=== PATIENT | female | born 1990 | race Hispanic/Latino ===

== ENCOUNTER 2017-09-23 11:13 | Emergency (ER) | payer BC ==
[2017-09-23 11:27] VITALS: TEMP 98
[2017-09-23 12:19] LABS: BASO # 0.1 K/uL (0.0-0.2); BASO % 0.8 % (0.0-2.0); EOS % 0.1 % (0.0-4.0); LYMPH # 1.5 K/uL (1.0-4.3); LYMPH % 22.3 % (20.0-40.0); MEAN CELL VOLUME 89.3 fl (81.0-99.0); MEAN CORPUSCULAR HEMOGLOBIN 30.5 pg (27.0-31.0); MEAN CORPUSCULAR HGB CONC 34.1 g/dL (33.0-37.0); MEAN PLATELET VOLUME 7.8 fl (7.2-11.7); MONO # 0.4 K/uL (0.0-0.8); MONO % 6.5 % (0.0-10.0); NEUT # 4.6 K/uL (1.8-7.0); NEUT % 70.3 % (50.0-75.0); NRBC % 0.2 % (0.0-0.0); RBC 4.59 Mil/uL (3.80-5.20); RED CELL DISTRIBUTION WIDTH 13.7 % (11.5-14.5); WHITE BLOOD COUNT 6.5 K/uL (4.8-10.8)
--- NOTE | 2017-09-23 12:20 | RAD ---
HISTORY: weakness COMPARISON: No prior. TECHNIQUE: Chest PA and lateral FINDINGS: LUNGS: No active pulmonary disease. PLEURA: No significant pleural effusion identified. No pneumothorax apparent. CARDIOVASCULAR: Normal. OSSEOUS STRUCTURES: No significant abnormalities. VISUALIZED UPPER ABDOMEN: Normal. OTHER FINDINGS: None. IMPRESSION: No active disease.
[2017-09-23] MEDS: Sodium Chloride 0.9% 1,000 ML IV SCH ×2 (12:22→13:05)
[2017-09-23 12:32] LABS: ALB/GLOB RATIO 1.2 (1.0-2.1); ALBUMIN 4.4 g/dL (3.5-5.0); ALT/SGPT 38 U/L (9-52); AST/SGOT 26 U/L (14-36); BLOOD UREA NITROGEN 10 mg/dl (7-17); CALCIUM 9.4 mg/dL (8.4-10.2); GFR AFRICAN-AMERICAN > 60; GFR NON-AFRICAN AMERICAN > 60
[2017-09-23 13:06] LABS: BARBITURATES, UR NEGATIVE (NEGATIVE); BENZODIAZEPINES, UR NEGATIVE (NEGATIVE); OPIATES, UR NEGATIVE (NEGATIVE); PHENCYCLIDINE, UR NEGATIVE (NEGATIVE)
--- NOTE | 2017-09-23 13:28 | ED PDOC ---
HPI: General Adult Time Seen by Provider: 09/23/17 11:22 Chief Complaint (Nursing): Flu-like Symptoms Chief Complaint (Provider): Flu-like Symptoms History Per: Patient History/Exam Limitations: no limitations Onset/Duration Of Symptoms: Days (x 1 week) Have you had recent travel within the past 21 days to any of the following countries: [place], [place], [place] or [place]?: No Current Symptoms Are (Timing): Still Present Additional Complaint(s): 26 y/o female presents complaining of generalized weakness and nausea. States she just came back from [place] 1 week ago and felt well at that time. On Sunday while at work, she developed flu-like symptoms including fever, body aches, malaise, and intermittent diarrhea. Symptoms improved 3-4 days ago but last night she went out and had 3-4 drinks, and this morning began feeling weak with nausea. Otherwise she currently denies any: (-) fever, (-) cough, (-) shortness of breath, (-) chest pain, (-) abdominal pain, (-) diarrhea, (-) urinary symptoms. No recent sick contacts. PMD: None Past Medical History Reviewed: Historical Data, Nursing Documentation, Vital Signs Vital Signs: Last Vital Signs Temp 98.0 F 09/23/17 13:30 Pulse 82 09/23/17 13:30 Resp 16 09/23/17 13:30 BP 120/76 09/23/17 13:30 Pulse Ox 99 09/23/17 14:29 - Medical History PMH: No Chronic Diseases - Surgical History Surgical History: No Surg Hx - Family History Family History: States: Unknown Family Hx - Social History Current smoker - smoking cessation education provided: No Alcohol: Social Drugs: Denies - Immunization History Hx Tetanus Toxoid Vaccination: No Hx Influenza Vaccination: No Hx Pneumococcal Vaccination: No - Home Medications Home Medications: Ambulatory Orders Medication Instructions Recorded Ondansetron ODT [Zofran ODT] 4 mg PO DAILY PRN #20 odt 09/23/17 - Allergies Allergies/Adverse Reactions: Allergies Allergy/AdvReac Type Severity Reaction Status Date / Time No Known Allergies Allergy Verified 09/23/17 11:24 Review of Systems ROS Statement: Except As Marked, All Systems Reviewed And Found Negative Constitutional: Positive for: Weakness (generalized), Malaise, Other (bodyaches) . Negative for: Fever Cardiovascular: Negative for: Chest Pain Respiratory: Negative for: Cough, Shortness of Breath Gastrointestinal: Negative for: Diarrhea (now resolved) Physical Exam - Reviewed Nursing Documentation Reviewed: Yes Vital Signs Reviewed: Yes - Physical Exam Comments: GENERAL APPEARANCE: Patient is awake, alert, oriented x 3, in no acute distress. SKIN: Warm, dry; (-) cyanosis, (-) rash. EYES: (-) conjunctival pallor, (-) scleral icterus, (-) conjunctival hemorrhage. ENMT: Mucous membranes are dry. TMs: (-) erythema. Airway patent: (-) stridor. Pharynx: (-) erythema, (-) exudate. NECK: (-) tenderness, (-) stiffness, (-) meningismus, (-) lymphadenopathy. CHEST AND RESPIRATORY: (-) accessory muscle use. Lungs: (-) rales, (-) rhonchi, (-) wheezes, (-) rub; breath sounds equal bilaterally. HEART AND CARDIOVASCULAR: (-) irregularity; (-) murmur, (-) gallop, (-) rub. ABDOMEN AND GI: Soft; (-) tenderness, (-) guarding; (-) organomegaly; (-) mass ; (-) CVA tenderness. EXTREMITIES: (-) deformity; (-) cellulitis, (-) lymphangitis; (-) subungual hemorrhage; (-) edema. NEURO AND PSYCH: Mental status as above; (-) focal findings. - Laboratory Results Result Diagrams: 09/23/17 12:05 09/23/17 12:05 - ECG O2 Sat by Pulse Oximetry: 99 (RA) Pulse Ox Interpretation: Normal Medical Decision Making Medical Decision Making: Impression : dehydration, r/o pneumonia, consider mono vs flu Time: 11:47 Initial Plan: --Urine drug screen --Alcohol serum --CMP --CBC --Urine preg --Urine dipstick --Chest x-ray --Urinalysis --Urine culture --IV fluids --Zofran 4 mg PO --Pending flu swab and mononucleosis serology CXR: No acute disease, as read by SHANE leroy (-) UA : (+) ketones, no evidence of UTI Labs reviewed: Negative flu and mono. Blood work otherwise normal. Etoh & UDS (- ). On re-evaluation, patient reports improvement of symptoms, denies any CP, SOB, abdominal pain, nausea. States that she feels much better and wants to go home. On exam, patient remains AAOx3, in no acute distress. Neck is supple, repeat neuro exam shows no focal findings. Tolerating po fluids. VS T98 P82 BP120/76 R16 [id number]%RA Diagnostic results d/w the patient in great detail. Diagnosis of dehydration, s/ p viral (flu) illness d/w the patient. Based on history, exam and diagnostic results plan will be for outpatient follow up with primary doctor or referral provided. Patient will be discharged home with prescription for Zofran. Patient is medically stable for discharge home. Advised to follow up with primary care physician or referral in 1-2 days without fail. Advised to take medication as prescribed. Return to the emergency room at any time for any new or worsening symptoms. Patient states she fully agrees with and understands discharge instructions. States that she agrees with the plan and disposition. Verbalized and repeated discharge instructions and plan. I have given the patient opportunity to ask any additional questions. Scribe Attestation: Documented by Awa Stoner, acting as a scribe for Kiesha Canales PA-C Provider Scribe Attestation: All medical record entries made by the Scribe were at my direction and personally dictated by me. I have reviewed the chart and agree that the record accurately reflects my personal performance of the history, physical exam, medical decision making, and the department course for this patient. I have also personally directed, reviewed, and agree with the discharge instructions and disposition. Disposition - Clinical Impression Clinical Impression: Dehydration - Patient ED Disposition Is Patient to be Admitted: No Counseled Patient/Family Regarding: Studies Performed, Diagnosis, Need For Followup, Rx Given - Disposition Referrals: Clayton Cerrato MD [Staff Provider] - Disposition: Routine/Home Disposition Time: 13:00 Condition: IMPROVED Additional Instructions: Thank you for letting us take care of you today. You were treated for dehydration. The emergency medical care you received today was directed at your acute symptoms. If you were prescribed any medication, please fill it and take as directed. Bed rest, drink plenty of fluids. It may take several days for your symptoms to resolve. Return to the Emergency Department if your symptoms worsen, do not improve, or if you have any other problems. Please contact one of the physicians/clinics you have been referred to that are listed on the Patient Visit Information form that is included in your discharge packet. Bring any paperwork you were given at discharge with you along with any medications you are taking to your follow up visit. Our treatment cannot replace ongoing medical care by a primary care provider (PCP) outside of the emergency department. Thank you for allowing the [facility] team to be part of your care today. Prescriptions: Ondansetron ODT [Zofran ODT] 4 mg PO DAILY PRN #20 odt PRN Reason: Nausea/Vomiting Instructions: Dehydration, Adult (DC) Forms: [employer] ([place]), [facility] ED School/Work Excuse - POA Present On Arrival: None - PA / CONTRACTS ADMINISTRATOR / Resident Statement /DO has reviewed & agrees with the documentation as recorded.
[2017-09-23 13:46] VITALS: BP 120/76; PULSE 82; RESP 16
[2017-09-23 14:10] VITALS: O2SAT 99
== END 2017-09-23 13:35 | disposition home or self-care (01) ==
LOC: H.ER 11:13
DX: E86.0 Dehydration (principal)
CPT/HCPCS: 71046; 80053; 81025; 85025; 86308; 87086; 87804; 96360; 99285; G0480; J7040